=== PATIENT | male | born 1990 | race African-American/Black ===

== ENCOUNTER 2016-10-03 18:38 | Emergency (ER) | payer OTHER ==
[~2016-10-03] VITALS: Ht 167.6 cm; Wt 136.4 kg
[~2016-10-03 18:38] MED LIST: HYDROCODON-ACE1 EAC7 PO; ZOFRAN4 MG PO
[2016-10-03 20:37] LABS: HEMATOCRIT 42.9 % (38.0-50.0); MCH 27.2 PG (29.0-34.0); MCHC 32.4 G/DL (30.0-36.0); MEAN PLAT.VOLUME 10.3 uM^3 (9.0-12.4); PLATELET COUNT 260 K/uL (156-360); RBC DIS.WIDTH-CV 13.2 % (11.8-14.6); RBC DIS.WIDTH-SD 40.7 % (39-53); RED BLOOD COUNT 5.11 M/uL (4.00-5.50); WHITE BLOOD COUNT 12.8 K/uL (4.1-10.2)
[2016-10-03 20:49] LABS: CHLORIDE 106 mEq/L (99-109); POTASSIUM 3.9 mEq/L (3.7-5.4); SODIUM 140 mEq/L (136-147)
[2016-10-03 20:50] LABS: GLUCOSE 108 mg/dL (70-99)
[2016-10-03 20:52] LABS: ANION GAP 8 MEQ/L (2-14)
[2016-10-03 20:54] LABS: GFR ESTIMATE (CALCULATED) > 59 mL/min/
[2016-10-03 20:55] LABS: UREA NITROGEN (BUN) 15 mg/dL (9-23)
[2016-10-03 20:59] LABS: TROP-I INTERPRETATION NEGATIVE; TROPONIN-I < 0.01 ng/mL (0.0-0.30)
[2016-10-03] MEDS ORDERED: NAPROSYN500 MG PO (22:17)
[2016-10-03] MEDS ORDERED: AUGMENTIN600 MG/5 M PO (22:17)
[2016-10-03] MEDS ORDERED: NASAL DECONGEST30 M4 PO (22:17)
[2016-10-03 22:30] VITALS: BP 135/64
== END 2016-10-03 22:31 | disposition home or self-care (01) ==
LOC: EME 18:38
DX: H66.93 Otitis media, unspecified, bilateral (principal); R07.89 Other chest pain; R09.81 Nasal congestion
CPT/HCPCS: 71020; 80048; 84484; 85027; 93005; 99281; 99284